=== PATIENT | female | born 2000 | race Caucasian/White ===

== ENCOUNTER 2018-03-08 10:15 | Emergency (ER) | payer OTHER ==
[2018-03-08] MEDS ORDERED: NS 1,000 ML IV ONE (10:50)
--- NOTE | 2018-03-08 10:50 | EDPHY ---
General Time Seen by Provider: 03/08/18 10:43 Narrative: CHIEF COMPLAINT: Abdominal pain HISTORY OF PRESENT ILLNESS: Patient presents with complaints of abdominal pain. Gradual onset approximately 1 week ago. Constant duration. Location is epigastric right upper quadrant. Rated as severe at times. Currently rated at 6/10. Associated with nausea. No vomiting. No diarrhea. No chest pain or shortness of breath. She does have worsening pain with intake of food at times. Other times it is worse with inspiration. No bloody stools. No trauma or injury. No previous abdominal diagnoses or surgeries. No other associated complaints or modifying factors. NPO: 9:00 a.m. Today REVIEW OF SYSTEMS: 10 systems were reviewed and negative with the exception of the elements mentioned in the history of present illness. PCP: None SPECIALISTS: None PAST MEDICAL HISTORY: Denies any medical diagnoses PAST SURGICAL HISTORY: Denies any surgical history SOCIAL HISTORY: Nonsmoker. Occasional alcohol. No drug use. Lives independently and works here locally. FAMILY HISTORY: Noncontributory EXAMINATION: General Appearance: Alert, no distress. Speaking in full sentences. Head: normocephalic, atraumatic Eyes: Pupils equal and round, no conjunctival pallor or injection ENT, Mouth: Mucous membranes moist Neck: Normal inspection, supple, non-tender Respiratory: Lungs are clear to auscultation Cardiovascular: Regular rate and rhythm Gastrointestinal: Abdomen is soft and nondistended. There is tenderness in the epigastric right upper quadrant. There is no right lower quadrant tenderness. No guarding. No tympany. No rigidity. Bowel sounds are appreciated in all 4 quadrants. There is no CVA tenderness. Back: non-tender, no bony abnormalities Neurological: A&O, nonfocal, normal gait Skin: Warm and dry, no rash Extremities: Nontender, no pedal edema Psychiatric: Mood and affect normal DIFFERENTIAL DIAGNOSES: Including but not limited to biliary colic, cholecystitis, cholelithiasis, pancreatitis, colitis, gastritis, peptic ulcer disease, biliary dyskinesia MDM: 10:50 a.m. Right upper quadrant and epigastric abdominal pain associated with nausea but no vomiting. She does have tenderness in the epigastrium right upper quadrant. Strong family history of cholelithiasis. She reports subjective fever at home but afebrile here. Vital signs are within normal limits. I have ordered laboratory studies and IV fluid. Her pain is tolerable at this time. She is in no acute distress. She does not meet SIRS criteria. 11:05 a.m. CBC reveals mild leukocytosis. Chemistries unremarkable including normal liver function and lipase. I have ordered ultrasound of the right upper quadrant. 11:50 a.m. Notified by radiologist Dr. David. Ultrasound right upper quadrant reveals no acute findings. I have re-evaluated the patient. She still has epigastric and right-sided abdominal pain. I do not feel we have an explanation of her pain at this time and I feel she warrants a CT scan the abdomen pelvis. She has verbally consented to this. I have also ordered pain medication. Re- evaluate shortly. 12:37 p.m. Notified by radiologist Dr. Dailey. CT scan the abdomen pelvis reveals no acute findings in the epigastric or right upper quadrant. There is note of an ovarian cyst as documented. Appendix is normal appearing. 12:45 p.m. Patient re-evaluated. Her pain is significantly improved. Her abdominal exam remains benign. I discussed her CT scan findings, including ovarian cyst. I discussed the possibility of peptic ulcer disease, biliary dyskinesia, gastritis and other etiologies. I did offer admission to the hospital for pain control, but she has declined. She states that her pain is well controlled that she would like to go home. I will treat her with the possibility of peptic ulcer disease and recommend follow up with primary care physician and paintings conservator. I discussed strict ED precautions for any return of pain, fever, vomiting, intolerance of food. She is comfortable this plan. She is well-appearing. She is discharged home stable condition. SUPERVISION: This patient was independently evaluated without direct involvement of or examination by the attending physician. CONSULTATION: None - Diagnostics Imaging Results: Imaging Impressions Abdomen Ultrasound 03/08/18 11:04 Impression: Normal study. Findings were discussed with Jordin Hills PA-C at 11:48, on 03/08/2018. Abdomen CT 03/08/18 11:56 Impression: 1. No explanation for epigastric pain. No evidence of pancreatitis or pneumoperitoneum. 2. Left ovarian cyst, 6 cm, with trace adjacent free fluid. 3. Normal appendix. Findings discussed with Emergency Department physician assistant corporate controller, Jordin Hills on 03/08/2018, 12:40. - History Smoking Status: Never smoked - Objective Vital Signs: Initial Vital Signs Temperature (C) 98.6 F 03/08/18 10:24 Heart Rate 101 H 03/08/18 10:24 Respiratory Rate 16 03/08/18 10:24 Blood Pressure 108/65 03/08/18 10:24 O2 Sat (%) 96 03/08/18 10:24 O2 Delivery Mode Room Air Allergies/Adverse Reactions: No Known Allergies Allergy (Unverified 03/08/18 10:23) Home Medications: Medication Instructions Recorded Ondansetron Odt [Zofran Odt 4 mg 4 mg PO Q6 PRN #12 tab 03/08/18 (*)] oxyCODONE HCL/ACETAMINOPHEN 1 each PO Q4-6PRN PRN #9 tablet 03/08/18 [Percocet 5-325 mg Tablet] Laboratory Results: Laboratory Results 03/08/18 10:37 03/08/18 10:37 03/08/18 03/08/18 03/08/18 11:00 10:37 10:37 WBC RBC Hgb Hct MCV MCH MCHC RDW Plt Count MPV Neut % (Auto) Lymph % (Auto) [place] % (Auto) Eos % (Auto) Baso % (Auto) Nucleat RBC Rel Count Absolute Neuts (auto) Absolute Lymphs (auto) Absolute Monos (auto) Absolute Eos (auto) Absolute Basos (auto) Absolute Nucleated RBC Immature Gran % Immature Gran # Sodium 140 mEq/L mEq/L (135-145) Potassium 4.1 mEq/L mEq/L (3.3-5.0) Chloride 101 mEq/L mEq/L (97-110) Carbon Dioxide 27 mEq/l mEq/l (22-31) Anion Gap 12 mEq/L mEq/L (8-16) BUN 14 mg/dL mg/dL (7-23) Creatinine 0.6 mg/dL mg/dL (0.6-1.0) Estimated GFR > 60 Glucose 85 mg/dL mg/dL (70-100) Calcium 10.0 mg/dL mg/dL (8.5-10.4) Total Bilirubin 0.7 mg/dL mg/dL (0.1-1.4) Conjugated Bilirubin 0.0 mg/dL mg/dL (0.0-0.5) Unconjugated Bilirubin 0.7 mg/dL mg/dL (0.0-1.1) AST 18 IU/L IU/L (14-46) ALT 23 IU/L IU/L (9-52) Alkaline Phosphatase 83 IU/L IU/L (38-126) Total Protein 7.9 g/dL g/dL (6.3-8.2) Albumin 4.5 g/dL g/dL (3.5-5.0) Lipase 54 IU/L IU/L (23-300) Beta HCG, Qual NEGATIVE Urine Color YELLOW Urine Appearance CLEAR Urine pH 6.0 (5.0-7.5) Ur Specific [place] 1.009 (1.002-1.030) Urine Protein NEGATIVE (NEGATIVE) Urine Ketones NEGATIVE (NEGATIVE) Urine Blood NEGATIVE (NEGATIVE) Urine Nitrate NEGATIVE (NEGATIVE) Urine Bilirubin NEGATIVE (NEGATIVE) Urine Urobilinogen NEGATIVE EU EU (0.2-1.0) Ur Leukocyte Esterase 2+ H (NEGATIVE) Urine RBC 1-3 /hpf /hpf (0-3) Urine WBC 10-15 /hpf H /hpf (0-3) Ur Epithelial Cells TRACE /lpf /lpf (NONE-1+) Urine Mucus TRACE /lpf /lpf (NONE-1+) Urine Glucose NEGATIVE (NEGATIVE) 03/08/18 10:37 WBC 14.00 10^3/uL H 10^3/uL (3.80-9.50) RBC 4.60 10^6/uL 10^6/uL (4.18-5.33) Hgb 14.2 g/dL g/dL (12.6-16.3) Hct 40.8 % % (38.0-47.0) MCV 88.7 fL fL (81.5-99.8) MCH 30.9 pg pg (27.9-34.1) MCHC 34.8 g/dL g/dL (32.4-36.7) RDW 12.1 % % (11.5-15.2) Plt Count 267 10^3/uL 10^3/uL (150-400) MPV 10.6 fL fL (8.7-11.7) Neut % (Auto) 74.7 % H % (39.3-74.2) Lymph % (Auto) 16.1 % % (15.0-45.0) [place] % (Auto) 7.1 % % (4.5-13.0) Eos % (Auto) 1.4 % % (0.6-7.6) Baso % (Auto) 0.4 % % (0.3-1.7) Nucleat RBC Rel Count 0.0 % % (0.0-0.2) Absolute Neuts (auto) 10.46 10^3/uL H 10^3/uL (1.70-6.50) Absolute Lymphs (auto) 2.25 10^3/uL 10^3/uL (1.00-3.00) Absolute Monos (auto) 1.00 10^3/uL H 10^3/uL (0.30-0.80) Absolute Eos (auto) 0.19 10^3/uL 10^3/uL (0.03-0.40) Absolute Basos (auto) 0.06 10^3/uL 10^3/uL (0.02-0.10) Absolute Nucleated RBC 0.00 10^3/uL 10^3/uL (0-0.01) Immature Gran % 0.3 % % (0.0-1.1) Immature Gran # 0.04 10^3/uL 10^3/uL (0.00-0.10) Sodium Potassium Chloride Carbon Dioxide Anion Gap BUN Creatinine Estimated GFR Glucose Calcium Total Bilirubin Conjugated Bilirubin Unconjugated Bilirubin AST ALT Alkaline Phosphatase Total Protein Albumin Lipase Beta HCG, Qual Urine Color Urine Appearance Urine pH Ur Specific [place] Urine Protein Urine Ketones Urine Blood Urine Nitrate Urine Bilirubin Urine Urobilinogen Ur Leukocyte Esterase Urine RBC Urine WBC Ur Epithelial Cells Urine Mucus Urine Glucose Medications Given: Discontinued Medications Al Hydroxide/Mg Hydroxide (Maalox Susp) 30 ml PO ONCE ONE Stop: 03/08/18 11:57 Last Admin: 03/08/18 12:05 Dose: 30 ml Hyoscyamine Sulfate (Levsin, Hyomax-Sl) 0.25 mg PO ONCE ONE Stop: 03/08/18 11:57 Last Admin: 03/08/18 12:05 Dose: 0.25 mg Sodium Chloride (Ns) 1,000 mls @ 0 mls/hr IV EDNOW ONE; Wide Open PRN Reason: Protocol Stop: 03/08/18 10:51 Last Admin: 03/08/18 10:55 Dose: 1,000 mls Lidocaine (Lidocaine 2% Viscous) 15 ml PO ONCE ONE Stop: 03/08/18 11:57 Last Admin: 03/08/18 12:05 Dose: 15 ml Morphine Sulfate (Morphine) 4 mg IVP EDNOW ONE Stop: 03/08/18 11:57 Last Admin: 03/08/18 12:06 Dose: 4 mg Ondansetron HCl (Zofran) 4 mg IVP EDNOW ONE Stop: 03/08/18 11:57 Last Admin: 03/08/18 12:06 Dose: 4 mg Departure - Departure Disposition: Home, Routine, Self-Care Clinical Impression: Epigastric pain, Right upper quadrant pain, Ovarian cyst, left Condition: Good Instructions: Ovarian Cyst (ED), Peptic Ulcer (ED), Clear Liquid Diet (ED), Acute Abdominal Pain (ED) Additional Instructions: 1. Clear liquid diet, advancing slowly as tolerated 2. Pain and nausea medications as prescribed as needed 3. [id number] Pepcid twice daily as directed on the box for 1-2 weeks 4. [id number] Mylanta as directed on the bottle as needed 5. Contact the on-call paintings conservator and primary care physicians as provided for further workup of this pain and monitoring of the ovarian cyst 6. ED precautions for worsening pain, fever, flank pain, vomiting or no improvement over the next 24-48 hours Referrals: Anh Kelly MD [Medical Doctor] - As per Instructions Dudley Power MD [Medical Doctor] - As per Instructions Stand Alone Forms: Work Excuse Prescriptions: Ondansetron Odt [Zofran Odt 4 mg (*)] 4 mg PO Q6 PRN #12 tab PRN Reason: Nausea/Vomiting, Use 1st oxyCODONE HCL/ACETAMINOPHEN [Percocet 5-325 mg Tablet] 1 each PO Q4-6PRN PRN #9 tablet PRN Reason: Pain, Breakthrough
[2018-03-08 10:51] LABS: PLATELET COUNT 267 10^3/uL (150-400)
[2018-03-08] MEDS ORDERED: HYOSCYAMINE SULFATE 0.125 MG TAB PO ONE (11:56)
[2018-03-08] MEDS ORDERED: MAG HYDROX/AL HYDROX/SIMETH 30 ML UDCUP PO ONE (11:56)
[2018-03-08] MEDS ORDERED: LIDOCAINE 2% VISCOUS 15 ML UDCUP PO ONE (11:56)
[2018-03-08] MEDS ORDERED: ONDANSETRON 4 MG/2 ML VIAL IVP ONE (11:56)
[2018-03-08] MEDS ORDERED: IOPAMIDOL (ISOVUE-300) 100 ML BTL ONE (12:02)
[2018-03-08 13:09] VITALS: BP 106/50
== END 2018-03-08 13:09 | disposition home or self-care (01) ==
DX: R10.13 Epigastric pain (principal); R11.0 Nausea; N83.202 Unspecified ovarian cyst, left side; E86.9 Volume depletion, unspecified
CPT/HCPCS: 96374; J2270; J2405; Q9967